=== PATIENT | male | born 2000 | race Caucasian/White ===

== ENCOUNTER 2022-04-16 22:37 | Emergency (ER) | payer OTHER ==
[2022-04-22] MEDS ORDERED: HYDROCODONE-AC1 EAC1 PO (09:51)
== END 2022-04-17 00:58 | disposition home or self-care (01) ==
LOC: ED 22:37
DX: S52.501A Unspecified fracture of the lower end of right radius, initial encounter for closed fracture (principal); W18.39XA Other fall on same level, initial encounter; Y93.89 Activity, other specified; Y92.89 Other specified places as the place of occurrence of the external cause; Y99.8 Other external cause status

== ENCOUNTER → 2022-04-22 | Day surgery (SDC) | payer OTHER ==
[~2022-04-22] VITALS: Ht 177.8 cm; Wt 91.6 kg
[~2022-04-22] MED LIST: HYDROCODONE-AC1 EAC1 PO
[2022-04-22 07:40] VITALS: BP 160/92
[2022-04-22 10:36] VITALS: BP 143/89
[2022-04-22 10:51] VITALS: BP 135/89
[2022-04-22 11:06] VITALS: BP 142/86
[2022-04-22 11:21] VITALS: BP 111/81
[2022-04-22 11:36] VITALS: BP 136/79
== END | disposition home or self-care (01) ==
LOC: SDC 04-19 10:15
PROVIDERS: ATTEND Orthopaedic Surgery
DX: S52.571A Other intraarticular fracture of lower end of right radius, initial encounter for closed fracture (principal); F17.290 Nicotine dependence, other tobacco product, uncomplicated; W19.XXXA Unspecified fall, initial encounter; Y93.39 Activity, other involving climbing, rappelling and jumping off; Y92.89 Other specified places as the place of occurrence of the external cause; Y99.8 Other external cause status

== ENCOUNTER → 2022-05-07 | Outpatient (CLI) | payer OTHER | END | disposition home or self-care (01) | LOC: ORTHO 01:45 | PROVIDERS: ATTEND Orthopaedic Surgery | DX: S52.571D Other intraarticular fracture of lower end of right radius, subsequent encounter for closed fracture with routine healing (principal); X58.XXXD Exposure to other specified factors, subsequent encounter ==

== ENCOUNTER → 2022-06-04 | Outpatient (CLI) | payer OTHER | LOC: ORTHO 00:30 | PROVIDERS: ATTEND Orthopaedic Surgery | DX: S52.611D Displaced fracture of right ulna styloid process, subsequent encounter for closed fracture with routine healing (principal); S52.571D Other intraarticular fracture of lower end of right radius, subsequent encounter for closed fracture with routine healing; X58.XXXD Exposure to other specified factors, subsequent encounter ==

== ENCOUNTER → 2022-07-16 | Outpatient (CLI) | payer OTHER | END | disposition home or self-care (01) | LOC: ORTHO 00:42 | PROVIDERS: ATTEND Orthopaedic Surgery | DX: S52.571D Other intraarticular fracture of lower end of right radius, subsequent encounter for closed fracture with routine healing (principal); X58.XXXD Exposure to other specified factors, subsequent encounter ==